=== PATIENT | female | born 1965 | race African-American/Black ===

== ENCOUNTER 2021-12-24 10:44 | Emergency (ER) | payer MEDICAID ==
[~2021-12-24] VITALS: Ht 157.5 cm; Wt 95.0 kg
[~2021-12-24 10:44] MED LIST: ALBU17AE26; FURO-152; GABA-532; IBUP-1008; MORPHINE; SIMV10TA97
[2021-12-24 10:50] VITALS: BP 149/89
[2021-12-24] MEDS ORDERED: FLUORESCEIN SODIUM 1MG/STRIP LEFTEYE ONE (11:00)
[2021-12-24] MEDS ORDERED: TETRACAINE 0.5% OPHTH DROPS 4ML LEFTEYE ONE (11:00)
[2021-12-24] MEDS ORDERED: ACETAMINOPHEN WITH CODEINE 300/30MG TABLET PO ONE (15:15)
[2021-12-24] MEDS ORDERED: TETRACAINE 0.5% OPHTH DROPS 4ML LEFTEYE NR (15:15)
[2021-12-24] MEDS ORDERED: FLUORESCEIN SODIUM 1MG/STRIP LEFTEYE NR (15:15)
== END 2021-12-24 17:18 | disposition home or self-care (01) ==
LOC: ER 10:44
DX: M17.11 Unilateral primary osteoarthritis, right knee (principal); H11.009 Unspecified pterygium of unspecified eye; J45.909 Unspecified asthma, uncomplicated; M79.7 Fibromyalgia; Z88.6 Allergy status to analgesic agent
CPT/HCPCS: 73562; 99283